=== PATIENT | male | born 1975 | race Two or more races ===

== ENCOUNTER 2025-07-27 22:36 | Emergency (ER) | payer OTHER ==
[~2025-07-27] VITALS: Ht 188 cm; Wt 96.6 kg
[2025-07-27 22:42] VITALS: BP 136/92; O2SAT 97
[2025-07-27] MEDS ORDERED: FAMOtidine 10 MG/ML (4ML VIAL) IV ONE (23:30)
[2025-07-27] MEDS ORDERED: ONDANSETRON HCL 2 MG/ML VIAL IV ONE (23:30)
[2025-07-27] MEDS ORDERED: HYOSCYAMINE SULFATE 0.125 MG TAB.SUBL SL ONE (23:30)
[2025-07-27] MEDS ORDERED: HYOSCYAMINE SULFATE 0.125 MG TAB.SUBL ONE (23:37)
[2025-07-27] MEDS ORDERED: ONDANSETRON HCL 2 MG/ML VIAL ONE (23:37)
[2025-07-27] MEDS ORDERED: FAMOTIDINE/PF 20 MG/2 ML VIAL ONE (23:37)
[2025-07-28 00:21] LABS: BASO % 0.4 % (0.1-1.2); EOS # 0.12 (0.04-0.54); EOS % 0.6 % (0.7-7.0); LYMPH # 2.81 (1.18-3.74); LYMPH % 14.9 % (19.3-53.1); MEAN PLATELET VOLUME 9.80 fl (9.4-12.4); MONO # 0.84 (0.24-0.82); MONO % 4.4 % (4.7-12.5); NEUT # 14.97 (1.56-6.13); NEUT % 79.2 % (34.0-71.1); RED CELL DISTRIBUTION WIDTH 13.4 % (11.6-14.4)
[2025-07-28 00:33] LABS: ALT/SGPT 16.0 U/L (12-78); AST/SGOT 12.0 U/L (15-37); BILIRUBIN TOTAL 0.42 mg/dL (0.3-1.2); BUN CREA RATIO 18.0 (7.0-25.0); CREATININE SERUM 0.96 mg/dL (0.70-1.30); GFR 83.6; GLOBULINA 2.8 G/DL (2.4-3.5); GLUCOSE FASTING 106.0 mg/dL (65-100); OSMOLALITY SERUM 287.0 MOSM/KG (275-295)
[2025-07-28] MEDS ORDERED: PIPERACILLIN/TAZOBACTAM SODIUM 3.375 GM VIAL IV ONE ×2 (01:00→01:18)
[2025-07-28] MEDS ORDERED: 0.9 % SODIUM CHLORIDE 1,000 ML IV ONE (02:00)
[2025-07-28] MEDS ORDERED: ACID REDUCER20 M1 PO (04:13)
[2025-07-28] MEDS ORDERED: PEPCID AC20 MG PO (04:13)
== END 2025-07-28 04:59 | disposition home or self-care (01) ==
LOC: ER 22:36
PROVIDERS: General Practice
DX: K52.89 Other specified noninfective gastroenteritis and colitis (principal); R11.2 Nausea with vomiting, unspecified